=== PATIENT | male | born 1980 | race Caucasian/White ===

== ENCOUNTER 2019-09-28 00:18 | Emergency (ER) | payer OTHER ==
[~2019-09-28] VITALS: Ht 182.9 cm; Wt 104.3 kg
[2019-09-28 00:23] VITALS: BP 157/96; Ht 182.9 cm; Wt 104.3 kg
== END 2019-09-28 00:23 | disposition other institution (70) ==
LOC: ED 00:18
DX: Z02.89 Encounter for other administrative examinations (principal)